=== PATIENT | female | born 1935 | race Caucasian/White ===

== ENCOUNTER 2017-04-19 09:56 | Emergency (ER) | payer MEDICARE, OTHER ==
[~2017-04-19] VITALS: Ht 162.6 cm; Wt 68.0 kg
--- NOTE | 2017-04-19 10:40 | NUR ---
Patient discharged to home in stable conditon. Written and verbal after care instructions given. Patient verbalizes understanding of instructions.pt walks in steady gait, accompanied b y brother. no sign of distress.
== END 2017-04-19 10:40 | disposition home or self-care (01) ==
LOC: ER 09:56
DX: J40 Bronchitis, not specified as acute or chronic (principal); I10 Essential (primary) hypertension; E78.5 Hyperlipidemia, unspecified
CPT/HCPCS: 71045; A4663

== ENCOUNTER 2021-10-12 20:13 | Emergency (ER) | payer MEDICARE, OTHER ==
[~2021-10-12] VITALS: Ht 165.1 cm; Wt 76.2 kg
[2021-10-12] MEDS ORDERED: HYDROMORPHONE 1 MG/1 ML DISP.SYRIN IV ONE (21:00)
[2021-10-12] MEDS ORDERED: PIPERACILLIN SODIUM/TAZOBACTAM 3.375 G in IV DEXTROSE 5% 50 ML IV ONE (21:00)
[2021-10-12] MEDS ORDERED: IV NORMAL SALINE 1000 ML BAG IV ONE (21:00)
[2021-10-12] MEDS ORDERED: PIPERACILLIN/TAZOBACTAM/D5W 50 ML IV ONE (21:00)
[2021-10-12] MEDS ORDERED: HYDROMORPHONE 1 MG/1 ML DISP.SYRIN ONE (21:01)
[2021-10-12 21:31] LABS: CARBON DIOXIDE 29 mmol/L (21-32); CHLORIDE 98 mmol/L (98-107); CREATININE 1.1 mg/dL (0.6-1.3); GLUCOSE 126 mg/dL (74-106); POTASSIUM 4.7 mmol/L (3.5-5.1); UREA NITROGEN, BLOOD 27 mg/dL (7-18)
[2021-10-12 21:31] LABS: *BILIRUBIN,URIN NEGATIVE (NEGATIVE); *CLARITY,URINE CLEAR (CLEAR); *COLOR,URINE YELLOW (YELLOW); *KETONES,URINE NEGATIVE (NEGATIVE); *UROBILINOGEN,URINE 0.2 E.U./dl (NORMAL); LEUKOCYTE ESTERASE ,URINE NEGATIVE (NEGATIVE); NITRITE, URINE NEGATIVE (NEGATIVE); UGLUCOSE NEGATIVE (NEGATIVE)
[2021-10-12 21:32] LABS: *BLOOD, URINE TRACE LYSED (NEGATIVE)
[2021-10-12 21:37] LABS: ALANINE AMINOTRANSFERASE 35 U/L (14-59); ALKALINE PHOSPHATASE 64 U/L (50-136); ASPARTATE AMINOTRANSFERASE 18 U/L (15-37); BILIRUBIN,DIRECT 0.2 mg/dL (0.0-0.2); BILIRUBIN,TOTAL 0.8 mg/dL (0.2-1.0); LIPASE 58 U/L (73-393); TOTAL PROTEIN, SERUM 7.2 g/dL (6.4-8.2)
[2021-10-12 21:49] LABS: HEMATOCRIT 31.9 % (31.2-41.9); MEAN CORPUSCULAR HEMOGLOBIN 30.1 uug (24.7-32.8); MEAN CORPUSCULAR VOLUME 86.8 fL (75.5-95.3); PLATELET COUNT (AUTO) 195 K/uL (179-408)
[2021-10-12] MEDS ORDERED: IV NORMAL SALINE 250 ML IV ONE (21:54)
[2021-10-12] MEDS ORDERED: IOHEXOL 300MG/ML 100 ML INFUS..BTL ONE (21:54)
[2021-10-12] MEDS ORDERED: SWABABLE VALVE TRANSFER SET EA MC ONE (21:54)
--- NOTE | 2021-10-12 23:00 | NUR ---
Patient laying on monique stating "I feel better now."
[2021-10-12] MEDS ORDERED: METR500T PO (23:45)
[2021-10-12] MEDS ORDERED: OXYC-128 PO (23:45)
[2021-10-12] MEDS ORDERED: PROC10TA29 PO (23:45)
[2021-10-12] MEDS ORDERED: AMOX-430 PO (23:45)
--- NOTE | 2021-10-13 00:01 | NUR ---
IV removed. Catheter intact and site benign. Pressure and 4x4 gauze applied to site. No bleeding noted.
--- NOTE | 2021-10-13 00:05 | NUR ---
Patient discharged to home in stable condition with daughter taking patient home. Written and verbal after care instructions given. Patient verbalizes understanding of instructions. Stressed follow up or return to ER for worsening s/s.
[2021-10-13 00:06] VITALS: BP 140/68
[2021-10-13 00:33] LABS: BACTERIA,URINE FEW /HPF (NONE SEEN); RBC,URINE 0-3 /HPF (0-3); SQUAMOUS EPITHELIAL CELL,UR FEW /HPF (NONE SEEN)
== END 2021-10-13 00:06 | disposition home or self-care (01) ==
LOC: ER 20:23
DX: K57.32 Diverticulitis of large intestine without perforation or abscess without bleeding (principal); M54.50 Low back pain, unspecified; I10 Essential (primary) hypertension; E78.5 Hyperlipidemia, unspecified
CPT/HCPCS: 36415; 74177; 80048; 80076; 81001; 83605; 83690; 85025; 87086; 93005; 96365; 96375; 99285; J1170; J2543; J7040; Q9967; A4663